=== PATIENT | female | born 1980 | race African-American/Black ===

== ENCOUNTER 2018-05-19 17:53 | Outpatient (CLI) | payer OTHER ==
[2018-05-19 18:23] VITALS: BP 108/67
== END 2018-05-19 19:10 | disposition home or self-care (01) ==
LOC: LDRP-OP 17:53 → 2WEST 17:54 → LDRP-OP 06-29 17:02
DX: O47.1 False labor at or after 37 completed weeks of gestation (principal); Z3A.38 38 weeks gestation of pregnancy; O32.1XX0 Maternal care for breech presentation, not applicable or unspecified
CPT/HCPCS: 59025; G0378

== ENCOUNTER 2018-05-24 23:34 | Outpatient (CLI) | payer OTHER ==
[2018-05-24 23:54] VITALS: BP 109/64
[2018-05-25] MEDS ORDERED: PRENATABS FA T1 EACH PO (00:43)
[2018-05-25] MEDS ORDERED: AUGMENTIN500 MG PO (00:57)
[2018-05-25] MEDS ORDERED: TERCONAZOLE80 MG VG (01:01)
[2018-05-25 02:23] LABS: CANDIDA DNA PROBE POSITIVE; TRICHOMONAS DNA PROBE NEGATIVE
[2018-05-25 02:24] LABS: GARDNERELLA DNA PROBE NEGATIVE
[2018-05-26] MEDS ORDERED: VENTOLIN HFA18 GM IH (08:46)
== END 2018-05-25 01:10 | disposition home or self-care (01) ==
LOC: LDRP-OP 23:34 → 2WEST 23:35 → LDRP-OP 06-29 19:35
PROVIDERS: Advanced Practice Midwife
DX: O47.1 False labor at or after 37 completed weeks of gestation (principal); O23.43 Unspecified infection of urinary tract in pregnancy, third trimester; B96.20 Unspecified Escherichia coli [E. coli] as the cause of diseases classified elsewhere; O09.523 Supervision of elderly multigravida, third trimester; J45.909 Unspecified asthma, uncomplicated; O99.513 Diseases of the respiratory system complicating pregnancy, third trimester; Z3A.39 39 weeks gestation of pregnancy
CPT/HCPCS: 59025; 87480; 87510; 87660; C1755; G0378

== ENCOUNTER 2018-05-26 07:51 | Inpatient (IN) | payer OTHER ==
[~2018-05-26] VITALS: Ht 165.1 cm; Wt 76.0 kg
[2018-05-26] VITALS (35 sets, daily range): BP systolic 100–144; BP diastolic 56–80
[~2018-05-26 07:51] MED LIST: AUGMENTIN500 MG PO; PRENATABS FA T1 EACH PO; TERCONAZOLE80 MG VG
[2018-05-26] MEDS ORDERED: VENTOLIN HFA18 GM IH (08:46)
[2018-05-26 10:08] LABS: BASOPHIL (%) 0.7 % (0-1); BASOPHIL COUNT 0.1 K/uL (0-0.1); EOSINOPHIL (%) 1.5 % (0-5); EOSINOPHIL COUNT 0.1 K/uL (0-0.3); HEMATOCRIT 29.9 % (36.0-46.0); HEMOGLOBIN 10.1 G/DL (11.9-15.5); IMMATURE GRANULOCYTE (%) 0.6 % (0.0-0.7); LYMPHOCYTE (%) 28.1 % (15-42); LYMPHOCYTE COUNT 1.9 K/uL (1.0-2.8); MCH 28.7 PG (29.0-34.0); MCHC 33.8 G/DL (30.0-36.0); MCV 84.9 FL (83-99); MONOCYTE (%) 10.1 % (3-12); MONOCYTE COUNT 0.7 K/uL (0-0.8); PLATELET COUNT 242 K/uL (156-360); RBC DIS.WIDTH-CV 13.5 % (11.8-14.6); RBC DIS.WIDTH-SD 42.3 % (39-53); RED BLOOD COUNT 3.52 M/uL (3.80-5.20); WHITE BLOOD COUNT 6.8 K/uL (4.1-10.2)
[2018-05-26 10:33] LABS: AMPHETAMINE NEGATIVE (500 ng/mL); BARBITURATES NEGATIVE (200 ng/mL); BENZODIAZEPINES NEGATIVE (150 ng/mL); BUPRENORPHINE NEGATIVE (10 ng/mL); COCAINE NEGATIVE (150 ng/mL); METHADONE NEGATIVE (200 ng/mL); METHAMPHETAMINE NEGATIVE (500 ng/mL); OPIATES (MORPHINE) NEGATIVE (100 ng/mL); OXYCODONE NEGATIVE (100 ng/mL); PHENCYCLIDINE NEGATIVE (25 ng/mL); PROPOXYPHENE NEGATIVE (300 ng/mL); THC CANNABINOIDS NEGATIVE (50 ng/mL); TRICYCLIC ANTIDEPRESSANTS NEGATIVE (300 ng/mL)
[2018-05-27] VITALS: BP 118/59
[2018-05-27 07:32] VITALS: BP 94/50
[2018-05-27 15:03] VITALS: BP 124/59
[2018-05-28 08:47] LABS: BASOPHIL (%) 0.7 % (0-1); BASOPHIL COUNT 0.1 K/uL (0-0.1); EOSINOPHIL (%) 1.4 % (0-5); EOSINOPHIL COUNT 0.2 K/uL (0-0.3); HEMATOCRIT 34.2 % (36.0-46.0); HEMOGLOBIN 11.3 G/DL (11.9-15.5); IMMATURE GRANULOCYTE (%) 0.5 % (0.0-0.7); LYMPHOCYTE (%) 28.3 % (15-42); LYMPHOCYTE COUNT 3.2 K/uL (1.0-2.8); MCH 28.3 PG (29.0-34.0); MCV 85.5 FL (83-99); MONOCYTE (%) 7.5 % (3-12); MONOCYTE COUNT 0.8 K/uL (0-0.8); NEUTROPHIL (%) 61.6 % (45-76); NEUTROPHIL COUNT 6.9 K/uL (1.8-6.4); PLATELET COUNT 225 K/uL (156-360); RBC DIS.WIDTH-CV 13.6 % (11.8-14.6); RBC DIS.WIDTH-SD 42.5 % (39-53); WHITE BLOOD COUNT 11.1 K/uL (4.1-10.2)
== END 2018-05-28 14:05 | disposition home or self-care (01) | DRG 775 ==
LOC: LDRP-OP 07:51 → 2WEST 07:52 → LDRP-OP 10:52 → 2WEST 20:47 → LDRP-OP 06-29 01:31
PROVIDERS: Advanced Practice Midwife
PROC: 3E0R3BZ Introduction of Anesthetic Agent into Spinal Canal, Percutaneous Approach (ICD-10-PCS; principal; 2018-05-26)
PROC: 00HU33Z Insertion of Infusion Device into Spinal Canal, Percutaneous Approach (ICD-10-PCS; principal; 2018-05-26)
PROC: 3E0P7GC Introduction of Other Therapeutic Substance into Female Reproductive, Via Natural or Artificial Opening (ICD-10-PCS; 2018-05-26)
PROC: 10E0XZZ Delivery of Products of Conception, External Approach (ICD-10-PCS; 2018-05-26)
DX: O75.89 Other specified complications of labor and delivery (principal); O99.02 Anemia complicating childbirth; D50.9 Iron deficiency anemia, unspecified; O99.52 Diseases of the respiratory system complicating childbirth; J45.909 Unspecified asthma, uncomplicated; Z3A.36 36 weeks gestation of pregnancy; Z37.0 Single live birth
CPT/HCPCS: 59025; 85025; 87480; 87510; 87660; 94640; 94799; C1755; G0378; J0595; J3010; J7120